=== PATIENT | male | born 2000 | race African-American/Black ===

== ENCOUNTER 2023-04-28 22:18 | Emergency (ER) | payer OTHER, SELFPAY ==
[2023-04-28 22:32] VITALS: BP 148/92; PULSE 55; RESP 18; TEMP 37.1; O2SAT 100; BMI 23.1
[2023-04-29 00:26] VITALS: BP 99/50
--- NOTE | 2023-04-29 00:26 | PC.NURSE ---
received to 4
[2023-04-29 00:27] VITALS: PULSE 48; RESP 16; O2SAT 98
[2023-04-29 00:30] VITALS: BP 92/55; PULSE 46; O2SAT 98
[2023-04-29 01:00] VITALS: BP 102/57; PULSE 47; RESP 18; O2SAT 98
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
[2023-04-29] MEDS: OXYCODONE/APAP 5/325 PREPACK 1 BOTTLE MISC (01:33)
[2023-04-29] MEDS: OXYCODONE/ACETAMINOPHEN 5/325 TABLET 1 TAB PO (01:34)
[2023-04-29] MEDS: IBUPROFEN 400 MG TABLET PO (01:34)
== END 2023-04-29 01:37 | disposition home or self-care (01) ==
PROVIDERS: Emergency Provider Emergency Medicine; Family Provider Pediatrics; PCP Pediatrics
DX: S16.1XXA Strain of muscle, fascia and tendon at neck level, initial encounter (principal); S01.511A Laceration without foreign body of lip, initial encounter; V89.2XXA Person injured in unspecified motor-vehicle accident, traffic, initial encounter
CPT/HCPCS: 99283

== ENCOUNTER 2023-05-02 10:25 | Emergency (ER) | payer OTHER, SELFPAY ==
[2023-05-02 10:32] VITALS: BP 121/63; PULSE 60; RESP 15; TEMP 36.8; O2SAT 99; BMI 23.1
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
[2023-05-02 12:05] VITALS: BP 121/62; PULSE 62; RESP 16; O2SAT 99
== END 2023-05-02 12:05 | disposition home or self-care (01) ==
PROVIDERS: Emergency Provider Student in an Organized Health Care Education/Training Program; Family Provider Pediatrics; PCP Pediatrics
DX: M54.50 Low back pain, unspecified (principal)
CPT/HCPCS: 99281

== ENCOUNTER 2023-08-11 10:11 | Emergency (ER) | payer SELFPAY ==
[2023-08-11] VITALS (11 sets, daily range): BP systolic 113–138; BP diastolic 56–83; PULSE 55–66; RESP 12–24; TEMP 37.1; O2SAT 96–100; BMI 23.3
--- NOTE | 2023-08-11 10:28 | ED.GENADULT ---
HPI - General Adult General Chief complaint: Abdominal Pain Stated complaint: Vomiting , Diarrhea Time Seen by Provider: 08/11/23 10:16 Source: patient Mode of arrival: Wheelchair History of Present Illness HPI narrative: patient is an otherwise healthy 23-year-old male. Had a umbilical hernia repair when he was a baby but otherwise no other abdominal surgeries who is here for evaluation of several weeks of occasional left lower quadrant abdominal pain associated with nausea and vomiting. He states that the current discomfort started within the past 24 hours and has been persistent and actually getting somewhat worse. No fevers. No urinary symptoms. No testicular pain. No change in bowel habits. No skin rashes. Went to the walk-in clinic who advised that he come to the emergency department further evaluation Related Data Home Medications Medication Instructions Recorded Confirmed MULTIVITAMIN (#CHILD'S CHEW) 1 ctb PO QDAY ##0 10/26/11 Previous Rx's Medication Instructions Recorded dextroamphetamine-amphetamine ER 0 PO QDAY ##30 09/13/11 25 mg 24hr capsule,extend release (Adderall XR) dextroamphetamine-amphetamine ER 0 PO QDAY ##30 09/13/11 25 mg 24hr capsule,extend release (Adderall XR) dextroamphetamine-amphetamine ER 0 PO QDAY ##30 09/13/11 25 mg 24hr capsule,extend release (Adderall XR) albuterol sulfate 90 mcg/actuation 2 puff INH Q4H PRN #2 inhalations 12/20/11 aerosol inhaler (Proventil HFA) ondansetron 4 mg disintegrating 4 mg PO Q8H PRN nausea and 05/02/23 tablet vomiting #14 tabs metoclopramide HCl 10 mg tablet 10 mg PO Q6H PRN nausea and 08/11/23 (Reglan) vomiting #20 tabs Allergies Allergy/AdvReac Type Severity Reaction Status Date / Time No Known Drug Allergies Allergy Verified 05/02/23 10:33 Review of Systems Review of Systems Narrative: See HPI Patient History Social History Smoking Status: Never smoker Smoking Status: Never smoker alcohol intake frequency: holidays/special occasions only Substance Use Type: marijuana Exam Initial Vital Signs Initial Vital Signs: Vital Signs Temperature 98.7 F 08/11/23 10:16 Pulse Rate 64 08/11/23 10:16 Respiratory Rate 24 08/11/23 10:16 Blood Pressure 126/83 08/11/23 10:16 Pulse Oximetry 100 08/11/23 10:16 Oxygen Delivery Method Room Air 08/11/23 10:16 [facility] Head: normal to inspection and normocephalic Resp Effort & Inspection: normal respiratory effort Auscultation: clear to auscultation bilaterally Cardio Rate: regular rate Rhythm: regular rhythm GI Inspection: normal to inspection and non-distended Palpation: soft, No firm, No guarding and tender Back/Spine/Pelvis Back: No CVA tenderness Skin General: no rashes or lesions noted Extrem General: normal to inspection and capillary refill normal Course Orders Ordered: ED Orders 08/11/23 10:29 CT abdomen pelvis w con Stat 08/11/23 10:35 Complete Blood Count AUTO DIFF Stat Comprehensive Metabolic Panel Stat Lipase Stat Discontinued Medications Sodium Chloride (Normal Saline 0.9%) 1,000 mls @ 1,000 mls/hr IV BOLUS ONE Stop: 08/11/23 11:27 Last Infusion: 08/11/23 11:31 Dose: Infused Documented By: Admin: 08/11/23 10:40 Dose: 1,000 mls/hr Documented By: MALCOLM Metoclopramide HCl (Metoclopramide 10 Mg/2 Ml Inj) 10 mg IV NOW ONE Stop: 08/11/23 13:01 Last Admin: 08/11/23 13:28 Dose: 10 mg Documented By: ALMAZ Ondansetron HCl (Ondansetron 4 Mg/2 Ml Inj) 4 mg IV NOW ONE Stop: 08/11/23 10:29 Last Admin: 08/11/23 10:41 Dose: 4 mg Documented By: MALCOLM Ondansetron HCl (Ondansetron 4 Mg/2 Ml Inj) 4 mg IV NOW ONE Stop: 08/11/23 12:14 Last Admin: 08/11/23 12:24 Dose: 4 mg Documented By: ALMAZ Vital Signs Vital signs: Vital Signs - 8 hr 08/11/23 10:16 08/11/23 10:27 08/11/23 10:30 Temperature 98.7 F Pulse Rate 64 62 57 L Respiratory Rate 24 Blood Pressure 126/83 Pulse Oximetry 100 99 100 Oxygen Delivery Method Room Air 08/11/23 11:00 08/11/23 11:01 08/11/23 11:01 Temperature Pulse Rate 66 65 Respiratory Rate Blood Pressure 124/67 Pulse Oximetry 100 100 Oxygen Delivery Method 08/11/23 11:30 08/11/23 11:30 08/11/23 12:21 Temperature Pulse Rate 62 61 Respiratory Rate Blood Pressure 138/79 Pulse Oximetry 96 100 Oxygen Delivery Method 08/11/23 12:21 08/11/23 12:30 08/11/23 12:30 Temperature Pulse Rate 63 Respiratory Rate Blood Pressure 118/75 124/78 Pulse Oximetry 99 Oxygen Delivery Method Medical Decision Making Lab Data Lab results reviewed: Yes I reviewed the patient's lab results. 08/11/23 10:35 08/11/23 10:35 Labs: Lab Results 08/11/23 Range/Units 10:35 WBC 7.3 (4.5-11.0) X10^3/uL RBC 5.16 (4.5-5.9) X10^6/uL Hgb 13.8 (13.5-17.5) g/dL Hct 41.5 (41-53) % MCV 80.5 (80-100) fL MCH 26.8 (26-34) PG MCHC 33.4 (30-36) % RDW 14.8 (11.6-14.8) % Plt Count 234 (150-400) X10^3/uL Neut % (Auto) 75.6 H (50-75) % Lymph % (Auto) 18.2 L (25-40) % [place] % (Auto) 4.9 (3-14) % Eos % (Auto) 0.9 L (2-4) % Baso % (Auto) 0.4 (0-2) % Neut # (Auto) 5600 (6970-5122) /uL Lymph # (Auto) 1300 (3032-6597) /uL [place] # (Auto) 400 (0-900) /uL Eos # (Auto) 100 (0-450) /uL Baso # (Auto) 0 (0-100) /uL Sodium 142 (137-145) mmol/L Potassium 4.4 (3.4-5.1) mmol/L Chloride 107 (98-107) mmol/L Carbon Dioxide 28 (22-32) mmol/L BUN 19 (9-20) mg/dL Creatinine 1.23 (0.66-1.25) mg/dL Estimated GFR > 60 (>60) mL/min BUN/Creatinine Ratio 15.4 (6-22) Glucose 96 (70-100) mg/dL Calcium 9.6 (8.4-10.2) mg/dL Total Bilirubin 1.2 (0.2-1.3) mg/dL AST 32 (17-59) IU/L ALT 20 (<50) IU/L Alkaline Phosphatase 55 (38-126) U/L Total Protein 8.5 H (6.3-8.2) g/dL Albumin 4.9 (3.5-5.0) g/dL Globulin 3.6 (1.7-4.1) g/dL Albumin/Globulin Ratio 1.4 (1.0-2.8) Lipase 92 (23-300) U/L Urine Dip Bedside Urine Glucose Negative Bedside Urine Bilirubin - Negative Bedside Urine Ketone - Negative Urine Specific [place] 1.000 Bedside Urine Occult Blood - Negative Bedside Urine pH 8.5 Bedside Urine Protein - Negative Bedside Urine Urobilinogen - Negative Bedside Urine Nitrite - Negative Bedside Urine Leukocytes - Negative Esterase Point of care testing: Urine Dip Bedside Urine Glucose Negative Bedside Urine Bilirubin - Negative Bedside Urine Ketone - Negative Urine Specific [place] 1.000 Bedside Urine Occult Blood - Negative Bedside Urine pH 8.5 Bedside Urine Protein - Negative Bedside Urine Urobilinogen - Negative Bedside Urine Nitrite - Negative Bedside Urine Leukocytes - Negative Esterase Imaging Data CT scan - abdomen/pelvis: Radiologist's Impression: PROCEDURE: CT ABDOMEN PELVIS W CON INDICATIONS: Left lower quadrant abdominal pain TECHNIQUE: After the administration of intravenous contrast, axial sections acquired from the lung bases to the pubic symphysis. Coronal and sagittal reformats were performed. For radiation dose reduction, the following was used: automated exposure control, adjustment of mA and/or kV according to patient size. COMPARISON: None. FINDINGS: Image quality: Diagnostic. Lower Chest: No significant findings. ABDOMEN: Liver: No solid mass. Gallbladder: No radiopaque gallstones or wall thickening. Biliary ducts: No biliary dilation. Pancreas: No ductal dilation. Spleen: Size is within normal limits. Adrenal Glands: No adrenal nodules. Kidneys and Ureters: No hydronephrosis. No solid mass. No complex renal cystic lesion which requires follow up. Stomach and Bowel: Normal colonic caliber, without significant wall thickening. Peritoneum: No abnormal intraperitoneal fluid. No free air. Ventral Wall: No significant ventral hernia. Abdominal Nodes: No retroperitoneal or mesenteric adenopathy by size criteria. Vessels: Aorta and inferior vena cava are normal in size. PELVIS: Pelvic Organs: Unremarkable. Bladder: No bladder wall thickening, accounting for underdistention. Pelvic Nodes: No enlarged lymph nodes. Miscellaneous: No inguinal hernias are seen. Bones: No aggressive osseous abnormality. There is a broad-based disc protrusion at L4-L5 resulting in canal stenosis. There is a broad-based disc bulge at L3-L4 which also results in canal stenosis. IMPRESSION: 1. No acute intra-abdominal process noted. 2. Note is made of disc pathology resulting in canal stenosis at L3-L4 and L4-L5. Comment: Consider nonemergent lumbar spine MRI depending upon severity of symptomatology related to canal stenosis. MDM Narrative Medical decision making narrative: Benign exam. CT scans unremarkable. Labs unremarkable. Is tolerating oral intake. Reglan seemed to work better for him for the nausea over Zofran. No indication for admission to hospital or surgical consultation. Patient was given return precautions. He expressed understanding and agreement. Discharge Plan Departure Patient Disposition: Home Clinical Impression: Abdominal pain, Nausea Instructions: DI for Abdominal Pain-Adult, DI for Nausea -- Adult Activity Restrictions/Additional Instructions: I do recommend a bland diet for the next couple days. Use the nausea medication as needed. It is important that you make contact with the primary care doctor. Return to the emergency department for new symptoms. Prescriptions: New metoclopramide HCl [Reglan] 10 mg tablet 10 mg PO Q6H PRN (Reason: nausea and vomiting) Qty: 20 0RF No Action dextroamphetamine-amphetamine [Adderall XR] 25 MG capsule,extended release 24hr 0 PO QDAY Qty: 30 0RF dextroamphetamine-amphetamine [Adderall XR] 25 MG capsule,extended release 24hr 0 PO QDAY Qty: 30 0RF dextroamphetamine-amphetamine [Adderall XR] 25 MG capsule,extended release 24hr 0 PO QDAY Qty: 30 0RF MULTIVITAMIN (#CHILD'S CHEW) 1 ctb PO QDAY Qty: 0 albuterol sulfate [Proventil HFA] 90 MCG/PUFF HFA aerosol inhaler 2 puff INH Q4H PRN Qty: 2 0RF ondansetron 4 mg tablet,disintegrating 4 mg PO Q8H PRN (Reason: nausea and vomiting) Qty: 14 0RF Referrals: Miscellaneous,Doctor, MD [Primary Care Provider] - Stand Alone Forms: Patient Portal/API
[2023-08-11] MEDS: SODIUM CHLORIDE 0.9% 1,000 ML 1000 ML IV (10:40)
[2023-08-11] MEDS: ONDANSETRON 4 MG/2 ML INJ IV ×2 (10:41→12:24)
[2023-08-11 10:42] LABS: Add Manual Diff / Slide Review NO; Basophils Absolute Auto 0 /uL (0-100); Basophils Percent Auto 0.4 % (0-2); Eosinophils Absolute Auto 100 /uL (0-450); Eosinophils Percent Auto 0.9 % (2-4); Hematocrit 41.5 % (41-53); Hemoglobin 13.8 g/dL (13.5-17.5); Lymphocytes Absolute Auto 1300 /uL (1100-4500); Lymphocytes Percent Auto 18.2 % (25-40); Mean Corpuscular HGB Conc 33.4 % (30-36); Mean Corpuscular Hemoglobin 26.8 PG (26-34); Mean Corpuscular Volume 80.5 fL (80-100); Monocytes Absolute Auto 400 /uL (0-900); Monocytes Percent Auto 4.9 % (3-14); Neutrophils Absolute Auto 5600 /uL (1500-7000); Neutrophils Percent Auto 75.6 % (50-75); Platelet Count 234 X10^3/uL (150-400); Red Blood Cell Count 5.16 X10^6/uL (4.5-5.9); Red Cell Distribution Width 14.8 % (11.6-14.8); White Blood Cell Count 7.3 X10^3/uL (4.5-11.0)
[2023-08-11 10:59] LABS: Alanine Aminotransferase 20 IU/L (<50); Albumin 4.9 g/dL (3.5-5.0); Albumin Globulin Ratio 1.4 (1.0-2.8); Alkaline Phosphatase 55 U/L (38-126); Aspartate Aminotransferase 32 IU/L (17-59); BUN Creatinine Ratio 15.4 (6-22); Bilirubin Total 1.2 mg/dL (0.2-1.3); Blood Urea Nitrogen 19 mg/dL (9-20); Calcium 9.6 mg/dL (8.4-10.2); Carbon Dioxide 28 mmol/L (22-32); Chloride 107 mmol/L (98-107); Estimated Glomerular Filt Rate > 60 mL/min (>60); Globulin 3.6 g/dL (1.7-4.1); Glucose 96 mg/dL (70-100); HEMOLYSIS 17 (0-50); Lipase 92 U/L (23-300); Potassium 4.4 mmol/L (3.4-5.1); Sodium 142 mmol/L (137-145); Total Protein 8.5 g/dL (6.3-8.2)
[2023-08-11] MEDS: METOCLOPRAMIDE 10 MG/2 ML INJ IV (13:28)
== END 2023-08-11 14:42 | disposition home or self-care (01) ==
PROVIDERS: Emergency Provider Emergency Medicine; Family Provider Pediatrics
DX: R10.32 Left lower quadrant pain (principal); R11.2 Nausea with vomiting, unspecified
CPT/HCPCS: 36415; 74177; 80053; 81003; 83690; 85025; 96361; 96374; 96375; 96376; 99284; J2405; J2765; Q9967